=== PATIENT | male | born 1970 | race Caucasian/White ===

== ENCOUNTER 2017-01-12 15:14 | Emergency (ER) | payer MEDICAID ==
[2017-01-12] MEDS ORDERED: PROTONIX 40 MG IV IV ONE ×2 (16:20→16:28)
--- NOTE | 2017-01-12 16:27 | ERPHSYRPT ---
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 had gallbladder out 2 weeks ago Triage Nursing Assessment: left mid abd intermittent states pain sharp and stabbing pain decreases with palpation. pt denies any n/v/d. resp easy [id number] Physician History: mild to mod off and on left flank pain ache for 3 days, no injury, hx renal stones, no fever, no NV Timing/Duration: day(s) Severity: mild Associated Symptoms: abdominal pain, No vomiting, No shortness of breath, No fever Allergies/Adverse Reactions: No Known Allergies Allergy (Verified 01/12/17 15:28) Home Medications: Amlodipine/Atorvastatin [Amlodipine-Atorvast 10-40 mg] 1 each PO DAILY 01/12/17 [History] - Review of Systems Constitutional: No Fever Eyes: No Symptoms Ears, Nose, & Throat: No Symptoms Respiratory: No Symptoms Cardiac: No Symptoms Abdominal/Gastrointestinal: Abdominal Pain Musculoskeletal: No Back Pain Skin: No Symptoms Neurological: Focal Weakness, No Dizziness Psychological: No Symptoms - Past Medical History Pertinent Past Medical History: Yes Neurological History: Stroke ENT History: No Pertinent History Respiratory History: No Pertinent History Endocrine Medical History: No Pertinent History Musculoskeletal History: No Pertinent History GI Medical History: No Pertinent History History: No Pertinent History Psycho-Social History: No Pertinent History Male Reproductive Disorders: No Pertinent History Other Medical History: cardiac valve disorder - Past Surgical History Past Surgical History: Yes Neuro Surgical History: No Pertinent History Cardiac: Valve Replacement Respiratory: No Pertinent History Gastrointestinal: Cholecystectomy Other Surgical History: 01/01/17 gallbladder - Social History Smoking Status: Never smoker Exposure to second hand smoke: No Drug Use: none Patient Lives Alone: Yes - Nursing Vital Signs Nursing Vital Signs: Initial Vital Signs Pulse Rate 84 01/12/17 15:15 Respiratory Rate 20 01/12/17 15:15 Blood Pressure 137/73 01/12/17 15:15 O2 Sat by Pulse Oximetry 97 01/12/17 15:15 Pain Scale Pain Intensity 10 - Physical Exam General Appearance: no apparent distress Eye Exam: PERRL/EOMI Ears, Nose, Throat Exam: moist mucous membranes Neck Exam: normal inspection Respiratory Exam: normal breath sounds Cardiovascular Exam: regular rate/rhythm Gastrointestinal/Abdomen Exam: tenderness, No distention Back Exam: CVA tenderness Extremity Exam: other (previous cva w/ right side weakness residual) Neurologic Exam: alert, oriented x 3, cooperative SpO2: 97 Oxygen Delivery: Room Air - Course Nursing assessment & vital signs reviewed: Yes - CT Exams Abdomen CT Interpretation: Discussed w/radiologist, Other (large left spigelian hernia w /o obstruction, incompletely visualized) Ordered Tests: Active Orders 24 hr Category Date Time Status IV Insertion STAT Care 01/12/17 16:20 Active ABDOMEN AND PELVIS W/0 CONTRAS [CT] Stat Exams 01/12/17 16:21 Completed CHEST 1 VIEW (PORTABLE) Stat Exams 01/12/17 16:21 Completed CBC W DIFF Stat Lab 01/12/17 16:28 Completed CMP Stat Lab 01/12/17 16:28 Completed LIPASE Stat Lab 01/12/17 16:28 Completed TROPONIN Q3H Lab 01/12/17 16:30 Completed TROPONIN Q3H Lab 01/12/17 19:30 Ordered TROPONIN Q3H Lab 01/12/17 22:30 Ordered TROPONIN Q3H Lab 01/13/17 01:30 Ordered TROPONIN Q3H Lab 01/13/17 04:30 Ordered UA W/RFX UR CULTURE Stat Lab 01/12/17 17:30 Completed Medication Summary Discontinued Medications Generic Name Dose Route Start Last Admin Trade Name Freq PRN Reason Stop Dose Admin Pantoprazole Sodium 40 mg 01/12/17 16:20 01/12/17 16:48 Protonix 40 Mg Iv IV 01/12/17 16:21 40 mg STAT ONE Administration Pantoprazole Sodium Confirm 01/12/17 16:28 Protonix 40 Mg Iv Administered 01/12/17 16:29 Dose 40 mg IV .[employer]-MED ONE Lab/Rad Data: Laboratory Result Diagrams 01/12/17 16:28 01/12/17 16:28 Laboratory Results 01/12/17 01/12/17 01/12/17 Range/Units 17:30 16:30 16:28 WBC (4.0-10.5) K/mm3 RBC (4.1-5.6) M/mm3 Hgb (12.5-18.0) gm/dl Hct (42-50) % MCV (78-100) fl MCH (26-32) pg MCHC (32-36) g/dl RDW (11.5-14.0) % Plt Count (150-450) K/mm3 MPV (6-9.5) fl Gran % (36.0-66.0) % Lymphocytes % (24.0-44.0) % Monocytes % (0.0-12.0) % Eosinophils % (0.00-5.0) % Basophils % (0.0-0.4) % Basophils # (0-0.4) Sodium 141 (136-145) mEq/L Potassium 4.4 (3.5-5.1) mEq/L Chloride 106 (98-107) mEq/L Carbon Dioxide 29.7 (21-32) mEq/L Anion Gap 9.6 (5-15) MEQ/L BUN 14 (9-20) mg/dL Creatinine 0.82 (0.55-1.30) mg/dl Estimated GFR > 60 ML/MIN Glucose 94 (70-110) MG/DL Calcium 8.9 (8.5-10.1) mg/dL Total Bilirubin 0.40 (0.2-1.0) mg/dL AST 11 L (15-37) U/L ALT 17 (12-78) U/L Alkaline Phosphatase 85 (46-116) U/L Troponin I < 0.017 (0.000-0.056) ng/ml Serum Total Protein 7.9 (6.4-8.2) gm/dL Albumin 3.9 (3.4-5.0) g/dL Lipase 328 (73-393) U/L Ur Collection Type CLEAN CATCH Urine Color YELLOW (YELLOW) Urine Appearance CLEAR (CLEAR) Urine pH 8.0 (5-6) Ur Specific [place] 1.005 (1.005-1.025) Urine Protein NEGATIVE (Negative) Urine Ketones NEGATIVE (NEGATIVE) Urine Blood NEGATIVE (0-5) Rickey/ul Urine Nitrite NEGATIVE (NEGATIVE) Urine Bilirubin NEGATIVE (NEGATIVE) Urine Urobilinogen NORMAL (0-1) mg/dL Ur Leukocyte Esterase NEGATIVE (NEGATIVE) Urine Culture Reflexed NO (NO) Urine Glucose NEGATIVE (NEGATIVE) mg/dL Specimen Received 01/12/17 1730 01/12/17 Range/Units 16:28 WBC 5.3 (4.0-10.5) K/mm3 RBC 4.83 (4.1-5.6) M/mm3 Hgb 15.1 (12.5-18.0) gm/dl Hct 45.0 (42-50) % MCV 93.2 (78-100) fl MCH 31.3 (26-32) pg MCHC 33.6 (32-36) g/dl RDW 12.9 (11.5-14.0) % Plt Count 294 (150-450) K/mm3 MPV 10.3 H (6-9.5) fl Gran % 51.8 (36.0-66.0) % Lymphocytes % 31.3 (24.0-44.0) % Monocytes % 12.2 H (0.0-12.0) % Eosinophils % 3.4 (0.00-5.0) % Basophils % 1.3 (0.0-0.4) % Basophils # 0.07 (0-0.4) Sodium (136-145) mEq/L Potassium (3.5-5.1) mEq/L Chloride (98-107) mEq/L Carbon Dioxide (21-32) mEq/L Anion Gap (5-15) MEQ/L BUN (9-20) mg/dL Creatinine (0.55-1.30) mg/dl Estimated GFR ML/MIN Glucose (70-110) MG/DL Calcium (8.5-10.1) mg/dL Total Bilirubin (0.2-1.0) mg/dL AST (15-37) U/L ALT (12-78) U/L Alkaline Phosphatase (46-116) U/L Troponin I (0.000-0.056) ng/ml Serum Total Protein (6.4-8.2) gm/dL Albumin (3.4-5.0) g/dL Lipase (73-393) U/L Ur Collection Type Urine Color (YELLOW) Urine Appearance (CLEAR) Urine pH (5-6) Ur Specific [place] (1.005-1.025) Urine Protein (Negative) Urine Ketones (NEGATIVE) Urine Blood (0-5) Rickey/ul Urine Nitrite (NEGATIVE) Urine Bilirubin (NEGATIVE) Urine Urobilinogen (0-1) mg/dL Ur Leukocyte Esterase (NEGATIVE) Urine Culture Reflexed (NO) Urine Glucose (NEGATIVE) mg/dL Specimen Received - Progress Progress: unchanged Progress Note: 01/12/17 18:[address] Eason at [facility] at 18:01 Will see patient in: hospital (observation) Counseled pt/family regarding: lab results, diagnosis, rad results - Departure Time of Disposition: 18:05 Departure Disposition: Transfer Clinical Impression: Spigelian hernia Condition: Stable Critical Care Time: No Referrals: PALOMA RAYMUNDO [ACTIVE STAFF] -
[2017-01-12 16:33] LABS: BASOPHIL % 1.3 % (0.0-0.4); Eosinophil % 3.4 % (0.00-5.0); Granulocytes % 51.8 % (36.0-66.0); Lymphocytes % 31.3 % (24.0-44.0); Mean Cell Volume 93.2 fl (78-100); Mean Corpuscular Hemoglobin 31.3 pg (26-32); Mean Platelet Volume 10.3 fl (6-9.5); Monocytes % 12.2 % (0.0-12.0); Platelet Count 294 K/mm3 (150-450); Red Blood Count 4.83 M/mm3 (4.1-5.6); Red Cell Distribution Width 12.9 % (11.5-14.0); White Blood Count 5.3 K/mm3 (4.0-10.5)
[2017-01-12 16:47] LABS: ALBUMIN 3.9 g/dL (3.4-5.0); ALKALINE PHOSPHATASE 85 U/L (46-116); ANION GAP 9.6 MEQ/L (5-15); BLOOD UREA NITROGEN 14 mg/dL (9-20); CHLORIDE 106 mEq/L (98-107); Carbon Dioxide 29.7 mEq/L (21-32); Glucose 94 MG/DL (70-110); LIPASE 328 U/L (73-393); Potassium 4.4 mEq/L (3.5-5.1); SGOT/AST 11 U/L (15-37); SGPT/ALT 17 U/L (12-78); SODIUM 141 mEq/L (136-145); Total Protein 7.9 gm/dL (6.4-8.2)
[2017-01-12 17:11] VITALS: BP 124/65; PULSE 67
--- NOTE | 2017-01-12 17:21 | XRAY ---
Indication: Left flank pain. Comparison: May 22, 2010 Portable chest demonstrates new aortic stent graft. Remaining heart, lungs, and bony thorax normal.
--- NOTE | 2017-01-12 17:26 | XRAY ---
Indication: Left flank pain. Multiple contiguous axial images obtained through the abdomen and pelvis without contrast as ordered. Comparison: None Lung bases are clear. Heart is not enlarged. Partially visualized aortic stent. Stomach is distended with food. Noncontrasted bowel loops appear nonobstructed. There is moderate diffuse colonic fecal debris throughout. Large left mid axillary line Spigelian hernia incompletely visualized with herniation of small and large bowel loop. No free fluid/air. Previous cholecystectomy. Nonobstructing 5 mm left renal calculus. Right kidney demonstrates a 4.6 mm exophytic cyst inferiorly. Remaining liver, pancreas, spleen, adrenal glands, kidneys, ureters, bladder, and aorta appear unremarkable for noncontrast exam. Osseous structures intact. Small fatty right inguinal hernia. Impression: 1. Large left flank Spigelian hernia with herniation of small and large bowel loop incompletely visualized. 2. Fecal stasis without obstruction. 3. Incidental right renal cyst and nonobstructing left renal micro-calculus. CTDI 23.68
[2017-01-12 17:32] LABS: ADD URINE CULTURE? NO (NO); Bilirubin NEGATIVE (NEGATIVE); Blood NEGATIVE Ery/ul (0-5); COMPLETE URINE MICROSCOPIC? NO; Collection Type CLEAN CATCH; Glucose NEGATIVE (NEGATIVE); Leukocyte Esterase NEGATIVE (NEGATIVE)
[2017-01-12 18:06] VITALS: O2SAT 97
== END 2017-01-12 19:31 | disposition short-term general hospital (02) ==
LOC: ED 15:14
DX: K43.9 Ventral hernia without obstruction or gangrene (principal); R10.9 Unspecified abdominal pain; Z90.49 Acquired absence of other specified parts of digestive tract
CPT/HCPCS: 36415; 71010; 74176; 80053; 81002; 83690; 84484; 85025; 96374; 99285